=== PATIENT | male | born 1970 | race Caucasian/White ===

== ENCOUNTER 2018-11-07 09:02 | Inpatient (IN) | payer MEDICARE, OTHER ==
[~2018-11-07] VITALS: Ht 157.5 cm; Wt 88.0 kg
[~2018-11-07 09:02] MED LIST: ASA PO; ASPI81CH43 PO; ATO40T; CAR3125T PO; CARV3.1240 OR; DIVA1TAB59 OR; DIVA500T4 OR; DIVA500T59 OR; ITRA100C2; LISI-275; LORA-205; OMEPRAZOLE PO; OXYC5TAB3; PROC25RS PO; SODIPOW OR; SUCR1TAB; ZOLP10TA; ZOLP10TA OR
[2018-11-07 10:12] LABS: Urine Bacteria NONE SEEN /hpf (None Seen); Urine Blood Negative /uL (Negative); Urine Specific Gravity 1.007 (1.001-1.035); Urine WBC <1 /hpf (0 - 3)
[2018-11-07 10:31] LABS: Basophils # (auto) 0 uL; Basophils % (auto) 0.4 % (0.0-2.0); Eosinophils # (auto) 0.1 uL; Hematocrit 40.3 % (41.0-53.0); Hemoglobin 13.2 g/dL (13.5-17.5); Lymphocytes # (auto) 1.6 uL; Lymphocytes % (auto) 26.1 % (10.0-50.0); Mean Corpuscular Hemoglobin 29.3 pg (28.0-32.0); Mean Corpuscular Hgb Conc. 32.7 g/dL (32.0-36.0); Mean Corpuscular Volume 89.4 fL (80.0-100.0); Monocytes # (auto) 0.6 uL; Monocytes % (auto) 10.3 % (0.0-12.0); Neutrophils # (auto) 3.9 uL; Neutrophils % (auto) 61.2 % (37.0-80.0); Platelet Count (auto) 242 10^3/uL (140-450); Red Blood Cells 4.51 10^6/uL (4.5-5.90); Red Cell Distribution Width 16.7 % (11.8-14.3); White Blood Cell 6.3 10^3/uL (4.4-10.8)
[2018-11-07 10:55] LABS: Albumin 3.7 g/dL (3.4-5.0); Calcium 9.3 mg/dL (8.5-10.1); Potassium 3.8 mmol/L (3.5-5.1)
[2018-11-07 11:00] LABS: Bilirubin, Total 0.2 mg/dL (0.2-1.0); Total Protein 7.8 g/dL (6.4-8.2)
[2018-11-07] MEDS ORDERED: CLINDAMYCIN 600MG IV 50 ML IV ONE (14:15)
[2018-11-07] MEDS ORDERED: PROMETHAZINE HCL 25 MG/ML 1ML IV PRN (16:00)
[2018-11-07] MEDS ORDERED: DEXTROSE (50%) 50ML SYRG IV PRN (16:00)
[2018-11-07] MEDS ORDERED: NITROGLYCERIN 0.4 MG SL TAB SL PRN (16:00)
[2018-11-07] MEDS ORDERED: LACTULOSE 20Gm/30ML SOLN PO PRN (16:00)
[2018-11-07] MEDS ORDERED: PIPERACILLIN-TAZOB 2.25GM 50 ML IV ONE (16:00)
[2018-11-07] MEDS ORDERED: traMADol HCL 50 MG TAB PO PRN (16:00)
[2018-11-07] MEDS ORDERED: MORPHINE SULF INJ 2 MG/ML SYRINGE 1ML IV PRN (16:00)
[2018-11-07] MEDS ORDERED: hydrALAZINE HCL 20 MG/ML VL IV PRN (16:15)
[2018-11-07] MEDS ORDERED: PIPERACILLIN-TAZOB 3.375GM 100 ML IV ONE (16:15)
[2018-11-07] MEDS: ACCU-CHEK COMFORT CURVE STRIP VI SCH ×2 (16:33→21:05)
[2018-11-07] MEDS: InsuLIN REG 1unit/0.01ml Soln (100units/ml) SC SCH ×2 (16:44→21:04)
[2018-11-07] MEDS: BUMETANIDE 1 MG TAB PO SCH (18:23)
--- NOTE | 2018-11-07 19:45 | NUR ---
[facility] admit from ER [facility] admitted to [facility]. Patient oriented to Carolyn Torres, primary RN, unit, room, bed, and unit policies regarding patient care and visiting hours. Patient's vs taken and recorded, weighed by bedscale and encouraged to call if they need something, call light within reach. POC reviewed. All questions and concerns addressed, patient verbalized understanding. Side rails up x2, bed in lowest locked position, non skid socks on. Continue care. Note:
[2018-11-07 20:02] VITALS: BP 128/80
[2018-11-07] MEDS ORDERED: ROSU20TA14 PO (20:44)
[2018-11-07] MEDS ORDERED: INSLANTI SC (20:44)
[2018-11-07] MEDS ORDERED: THIA100T5 PO (20:44)
[2018-11-07] MEDS ORDERED: INSU100I25 SC (20:44)
[2018-11-07] MEDS ORDERED: CITA10TA59 PO (20:44)
[2018-11-07] MEDS ORDERED: FENO200C22 PO (20:44)
[2018-11-07] MEDS ORDERED: MULTTAB99 PO (20:44)
[2018-11-07] MEDS ORDERED: CHOL100046 PO (20:44)
[2018-11-07] MEDS ORDERED: LAMO200T2 PO (20:44)
[2018-11-07] MEDS ORDERED: HYDR-4296 PO (20:44)
[2018-11-07] MEDS ORDERED: BUME1TAB28 PO (20:44)
[2018-11-07] MEDS ORDERED: LEVO88TA4 PO (20:44)
[2018-11-07] MEDS ORDERED: TACR1CAP4 PO (20:44)
[2018-11-07] MEDS ORDERED: ALLO100T PO (20:44)
[2018-11-07] MEDS ORDERED: LACO150T PO (20:44)
[2018-11-07] MEDS: MORPHINE SULFATE 4 MG/ML SYR/VIAL IV PRN (21:05)
[2018-11-07 22:00] VITALS: BP 128/80
[2018-11-07] MEDS: lamoTRIgine 100 MG TAB PO SCH (22:28)
[2018-11-07] MEDS: TACROLIMUS 0.5 MG CAP PO SCH (22:28)
[2018-11-07] MEDS: hydrALAZINE HCL 25 MG TAB PO SCH (22:28)
[2018-11-07] MEDS: CLINDAMYCIN 600MG IV 50 ML IV SCH (22:28)
[2018-11-07] MEDS: LACOSAMIDE 50 MG TAB PO SCH (22:29)
[2018-11-07] MEDS: TEMAZEPAM 15 MG CAP PO PRN (22:29)
[2018-11-08] MEDS: InsuLIN REG 1unit/0.01ml Soln (100units/ml) SC SCH ×7 (00:28→23:45)
[2018-11-08] MEDS: PIPERACILLIN-TAZOB 3.375GM 100 ML IV SCH ×5 (00:28→23:44)
[2018-11-08] MEDS: ACCU-CHEK COMFORT CURVE STRIP VI SCH ×7 (00:28→23:45)
[2018-11-08] MEDS: MORPHINE SULFATE 4 MG/ML SYR/VIAL IV PRN ×5 (04:00→20:42)
[2018-11-08 05:00] VITALS: BP 138/91
[2018-11-08] MEDS: LEVOTHYROXINE SODIUM 88 MCG TAB PO SCH (06:14)
[2018-11-08] MEDS: CLINDAMYCIN 600MG IV 50 ML IV SCH ×3 (06:14→22:01)
[2018-11-08] MEDS: BUMETANIDE 1 MG TAB PO SCH ×2 (06:14→17:51)
--- NOTE | 2018-11-08 08:00 | NUR ---
Opening Shift Note Assumed care of patient, awake and alert. No S/S of distress/SOB, complaints of 6/10 bilateral lower extremity pain. Instructed on POC and to call for assist PRN, will continue to monitor for changes Q1hr and PRN.
[2018-11-08 09:00] VITALS: BP 118/77
[2018-11-08] MEDS: CITALOPRAM HYDROBR 20 MG TAB PO SCH (09:14)
[2018-11-08] MEDS: ALLOPURINOL 100 MG TAB PO SCH (09:14)
[2018-11-08] MEDS: ENOXAPARIN SOD 40 MG/0.4 ML SYRINGE SC SCH (09:14)
[2018-11-08] MEDS: PANTOPRAZOLE 40 MG TAB PO SCH (09:14)
[2018-11-08] MEDS: lamoTRIgine 100 MG TAB PO SCH ×2 (09:14→22:01)
[2018-11-08] MEDS: TACROLIMUS 0.5 MG CAP PO SCH ×2 (09:15→22:02)
[2018-11-08] MEDS: LACOSAMIDE 50 MG TAB PO SCH ×2 (09:15→22:02)
[2018-11-08] MEDS: hydrALAZINE HCL 25 MG TAB PO SCH ×2 (09:48→22:01)
[2018-11-08] MEDS ORDERED: PNEUMOCOCCAL VACC POLYS 25 MCG/0.5 ML VIAL IM ONE (10:00)
--- NOTE | 2018-11-08 11:01 | NUR ---
Spoke with patient's mother Maritza #[phone] regarding home medications particularly the rejection meds. Per Maritza patient is on Prograf and the list of all the home medications listed were the updated and most recent ones obtained from [facility]. List of the home medications placed at the patient's chart. Will continue care.
[2018-11-08 11:16] LABS: Albumin 3.4 g/dL (3.4-5.0); BUN/Creatinine Ratio 19.3; Calcium 8.7 mg/dL (8.5-10.1)
[2018-11-08 11:19] LABS: Bilirubin, Total 0.4 mg/dL (0.2-1.0); Total Protein 7.4 g/dL (6.4-8.2)
[2018-11-08 11:44] LABS: Basophils # (auto) 0 uL; Basophils % (auto) 0.4 % (0.0-2.0); Eosinophils # (auto) 0.1 uL; Eosinophils % (auto) 2.4 % (0.0-7.0); Hematocrit 37.9 % (41.0-53.0); Hemoglobin 12.5 g/dL (13.5-17.5); Lymphocytes # (auto) 1.5 uL; Lymphocytes % (auto) 34.3 % (10.0-50.0); Mean Corpuscular Hemoglobin 29.3 pg (28.0-32.0); Mean Corpuscular Hgb Conc. 33.1 g/dL (32.0-36.0); Mean Corpuscular Volume 88.5 fL (80.0-100.0); Monocytes # (auto) 0.5 uL; Monocytes % (auto) 11.2 % (0.0-12.0); Neutrophils # (auto) 2.2 uL; Neutrophils % (auto) 51.7 % (37.0-80.0); Nucleated Red Blood Cells % 0.1 %; Platelet Count (auto) 227 10^3/uL (140-450); Red Blood Cells 4.29 10^6/uL (4.5-5.90); Red Cell Distribution Width 16.4 % (11.8-14.3); White Blood Cell 4.3 10^3/uL (4.4-10.8)
[2018-11-08 13:00] VITALS: BP 139/79
[2018-11-08 13:28] LABS: Phosphorus 4.4 mg/dL (2.5-4.90)
[2018-11-08] MEDS ORDERED: THIAMINE HCL 100 MG TAB PO ONE (15:00)
--- NOTE | 2018-11-08 15:15 | NUR ---
IV removal IV on right hand infiltrated. IV DC'd with clean sterile technique, catheter fully intact. Pressure dressing applied to site. Patient tolerated well.
[2018-11-08 15:19] LABS: Protein, Urine 58.7 mg/dL (0.0-11.9)
[2018-11-08 15:20] LABS: Alcohol, Urine < 3.0 mg/dL (0-5); Amphetamine Screen, Urine NEGATIVE (NEGATIVE); Barbiturate Scree,Urine NEGATIVE (NEGATIVE); Benzodiazephine Screen, Urine NEGATIVE (NEGATIVE); Cannabinoid Screen, Urine NEGATIVE (NEGATIVE); Cocaine Screen, Urine NEGATIVE (NEGATIVE); Opiate Scree,Urine NEGATIVE (NEGATIVE); Phencyclidine Screen, Urine NEGATIVE (NEGATIVE)
--- NOTE | 2018-11-08 15:50 | NUR ---
IV insertion IV access obtained, via clean sterile technique by inserting 22 gauge catheter at right upper chest after one attempt. IV secured properly. No trauma to site. Patient tolerated well.
[2018-11-08 17:00] VITALS: BP 126/79
--- NOTE | 2018-11-08 20:30 | NUR ---
RECEIVED PT IN BED, A/O X4, IN NO ACUTE DISTRESS, C/O 10/10 BLE PAIN, WILL MEDICATE ORDERED AND WILL REASSESS. POC REVIEWED WITH PT, VERBALIZED UNDERSTANDING AND AGREED WITH PLAN. CALL LIGHT WITHIN REACH, ENCOURAGED TO CALL IF HELP IS NEEDED, SIDE RAILS UP X2, BED IN LOWEST LOCKED POSITION, NON SKID SOCKS ON. CONTINUE CARE. IV insertion IV access obtained, via clean sterile technique by inserting 22 gauge catheter at L CHEST after 2 attempt(s). IV secured properly. No trauma to site. Patient tolerated well. NOTE: IV removal IV DC'd with clean sterile technique, catheter fully intact. Pressure dressing applied to site. Patient tolerated well. NOTE:
[2018-11-08] MEDS: INSULIN LANTUS (GLARGINE) 1 /0.01ml (100units/ml) SC SCH (20:43)
[2018-11-08 22:00] VITALS: BP 142/94
[2018-11-08] MEDS: TEMAZEPAM 15 MG CAP PO PRN (22:02)
[2018-11-09] MEDS: InsuLIN REG 1unit/0.01ml Soln (100units/ml) SC SCH ×6 (04:29→23:41)
[2018-11-09] MEDS: ACCU-CHEK COMFORT CURVE STRIP VI SCH ×6 (04:29→23:33)
[2018-11-09 05:14] VITALS: BP 127/73
[2018-11-09] MEDS: CLINDAMYCIN 600MG IV 50 ML IV SCH ×3 (05:41→21:51)
[2018-11-09 05:53] LABS: Basophils # (auto) 0 uL; Basophils % (auto) 0.5 % (0.0-2.0); Eosinophils # (auto) 0.1 uL; Eosinophils % (auto) 3.2 % (0.0-7.0); Hematocrit 38.5 % (41.0-53.0); Hemoglobin 12.7 g/dL (13.5-17.5); Lymphocytes # (auto) 1.5 uL; Lymphocytes % (auto) 32.5 % (10.0-50.0); Mean Corpuscular Hemoglobin 29.5 pg (28.0-32.0); Mean Corpuscular Hgb Conc. 32.9 g/dL (32.0-36.0); Mean Corpuscular Volume 89.4 fL (80.0-100.0); Monocytes # (auto) 0.7 uL; Monocytes % (auto) 14.8 % (0.0-12.0); Neutrophils # (auto) 2.3 uL; Nucleated Red Blood Cells % 0.1 %; Platelet Count (auto) 218 10^3/uL (140-450); Red Blood Cells 4.31 10^6/uL (4.5-5.90); Red Cell Distribution Width 16.3 % (11.8-14.3); White Blood Cell 4.6 10^3/uL (4.4-10.8)
[2018-11-09 06:15] LABS: Potassium 3.8 mmol/L (3.5-5.1)
[2018-11-09] MEDS: BUMETANIDE 1 MG TAB PO SCH ×2 (06:20→17:43)
[2018-11-09] MEDS: LEVOTHYROXINE SODIUM 88 MCG TAB PO SCH (06:20)
[2018-11-09] MEDS: INSULIN LANTUS (GLARGINE) 1 /0.01ml (100units/ml) SC SCH ×2 (06:20→23:41)
[2018-11-09] MEDS: MORPHINE SULFATE 4 MG/ML SYR/VIAL IV PRN ×4 (06:21→21:52)
[2018-11-09 06:28] LABS: BUN/Creatinine Ratio 20.9; Calcium 9.2 mg/dL (8.5-10.1); Magnesium 1.9 mg/dL (1.6-2.6)
[2018-11-09] MEDS: PIPERACILLIN-TAZOB 3.375GM 100 ML IV SCH ×4 (06:32→23:32)
--- NOTE | 2018-11-09 07:30 | NUR ---
Opening Shift Note Assumed care of patient, awake and alert. No S/S of distress/SOB or pain. Instructed on POC and to call for assist PRN, will continue to monitor for changes Q1hr and PRN.
[2018-11-09] MEDS: ENOXAPARIN SOD 40 MG/0.4 ML SYRINGE SC SCH (08:30)
--- NOTE | 2018-11-09 08:30 | NUR ---
PT NOTES PT IS CONSTANTLY HUNGRY AND DEMANDING MORE FOOD, COFFEE, SODA AND ICE TEA. EXPLAINED TO PT ABOUT HIS DIET AND WHY HE'S ON IT. PT KEEPS SAYING HE NEED MORE FOOD.
[2018-11-09] MEDS: CITALOPRAM HYDROBR 20 MG TAB PO SCH (08:31)
[2018-11-09] MEDS: ALLOPURINOL 100 MG TAB PO SCH (08:31)
[2018-11-09] MEDS: PANTOPRAZOLE 40 MG TAB PO SCH (08:31)
[2018-11-09] MEDS: LACOSAMIDE 50 MG TAB PO SCH ×2 (08:31→21:51)
[2018-11-09] MEDS: hydrALAZINE HCL 25 MG TAB PO SCH ×2 (08:32→22:00)
[2018-11-09] MEDS: THIAMINE HCL 100 MG TAB PO SCH (08:32)
[2018-11-09 08:43] VITALS: BP 136/68
[2018-11-09] MEDS: TACROLIMUS 0.5 MG CAP PO SCH ×2 (08:57→21:51)
[2018-11-09] MEDS: lamoTRIgine 100 MG TAB PO SCH ×2 (08:57→21:51)
--- NOTE | 2018-11-09 09:30 | NUR ---
Rounds Patient awake and alert. No S/S of distress/SOB or pain. PT COMPLAINS OF NOT HAVING ENOUGH FOOD AND IS REQUESTING FOR DOUBLE TRAY. INFORMED PT THAT HE IS ON A DIABETIC DIET AND WILL DISCUSS HIS REQUEST WITH THE MD AND THE WOOL HANKER. Will continue to monitor changes q1hr and PRN.
[2018-11-09 12:40] VITALS: BP 118/81
--- NOTE | 2018-11-09 14:00 | NUR ---
CALLED DIETARY TO SPEAK TO THE PT ABOUT HIS DIET. DIETARY DISCUSS DIET INFOS WITH PT.
[2018-11-09 16:56] VITALS: BP 137/96
--- NOTE | 2018-11-09 17:00 | NUR ---
AT BEDSIDE. MD'S AWARE THAT PT HAD BEEN ASKING FOR MORE FOOD, AND SODA ALL DAY AND PT DOESN'T SEEM TO UNDERSTAND WHEN WE EXPLAIN TO HIM WHAT DIET HE'S ON AND WHY HE CAN'T HAVE A DOUBLE TRAY EVERY MEAL.
[2018-11-09 21:54] VITALS: BP 136/84
[2018-11-10] MEDS: MORPHINE SULFATE 4 MG/ML SYR/VIAL IV PRN ×5 (03:15→21:35)
[2018-11-10] MEDS: ACCU-CHEK COMFORT CURVE STRIP VI SCH ×5 (04:04→21:25)
[2018-11-10] MEDS: InsuLIN REG 1unit/0.01ml Soln (100units/ml) SC SCH ×5 (04:05→21:30)
[2018-11-10] MEDS: CLINDAMYCIN 600MG IV 50 ML IV SCH ×3 (05:18→21:53)
[2018-11-10 05:21] VITALS: BP 126/88
[2018-11-10] MEDS: PIPERACILLIN-TAZOB 3.375GM 100 ML IV SCH ×4 (05:48→17:50)
[2018-11-10] MEDS: BUMETANIDE 1 MG TAB PO SCH ×2 (05:48→17:19)
[2018-11-10 06:10] LABS: BUN/Creatinine Ratio 20.5; Potassium 3.7 mmol/L (3.5-5.1)
[2018-11-10 06:15] LABS: Basophils # (auto) 0 uL; Basophils % (auto) 0.4 % (0.0-2.0); Eosinophils # (auto) 0.2 uL; Eosinophils % (auto) 4.1 % (0.0-7.0); Hematocrit 37.1 % (41.0-53.0); Hemoglobin 12.5 g/dL (13.5-17.5); Lymphocytes # (auto) 1.4 uL; Lymphocytes % (auto) 30.4 % (10.0-50.0); Mean Corpuscular Hemoglobin 29.5 pg (28.0-32.0); Mean Corpuscular Hgb Conc. 33.5 g/dL (32.0-36.0); Monocytes # (auto) 0.6 uL; Monocytes % (auto) 13.8 % (0.0-12.0); Neutrophils # (auto) 2.3 uL; Neutrophils % (auto) 51.3 % (37.0-80.0); Nucleated Red Blood Cells % 0.1 %; Platelet Count (auto) 210 10^3/uL (140-450); Red Blood Cells 4.22 10^6/uL (4.5-5.90); Red Cell Distribution Width 16.5 % (11.8-14.3); White Blood Cell 4.4 10^3/uL (4.4-10.8)
[2018-11-10] MEDS: LEVOTHYROXINE SODIUM 88 MCG TAB PO SCH (06:25)
[2018-11-10] MEDS: INSULIN LANTUS (GLARGINE) 1 /0.01ml (100units/ml) SC SCH ×2 (06:26→21:54)
--- NOTE | 2018-11-10 08:30 | NUR ---
PT NOTES PT HAD BEEN CONSTANTLY ON HIS CALL LIGHT ASKING FOR AN EXTRA TRAY OF FOOD. PER PT, HE'S NOT GETTING ENOUGH FOOD TO EAT. EXPLAINED TO PATIENT THAT HE IS ON A DIABETIC DIET WHILE HE'S IN THE HOSPITAL. PT WASN'T HAPPY ABOUT THAT AND WOULD LIKE TO SPEAK TO THE MD TO CHANGE HIS DIET. INFORMED PT THAT WE WILL LET THE DOCTOR KNOW.
[2018-11-10 08:48] VITALS: BP 132/83
[2018-11-10] MEDS: TACROLIMUS 0.5 MG CAP PO SCH ×2 (09:46→21:58)
[2018-11-10] MEDS: ENOXAPARIN SOD 40 MG/0.4 ML SYRINGE SC SCH (09:46)
[2018-11-10] MEDS: lamoTRIgine 100 MG TAB PO SCH ×2 (09:46→21:53)
[2018-11-10] MEDS: ALLOPURINOL 100 MG TAB PO SCH (09:47)
[2018-11-10] MEDS: CITALOPRAM HYDROBR 20 MG TAB PO SCH (09:47)
[2018-11-10] MEDS: PANTOPRAZOLE 40 MG TAB PO SCH (09:47)
[2018-11-10] MEDS: THIAMINE HCL 100 MG TAB PO SCH (09:47)
[2018-11-10] MEDS: hydrALAZINE HCL 25 MG TAB PO SCH ×2 (09:49→21:53)
[2018-11-10] MEDS: LACOSAMIDE 50 MG TAB PO SCH ×2 (11:39→21:54)
--- NOTE | 2018-11-10 13:00 | NUR ---
IV INFILTRATED. IV SITE ON LEFT CHEST/ARMPIT PINK AND OCCLUDED. IV DC'd with clean sterile technique, catheter fully intact. Pressure dressing applied to site. Patient tolerated well. NOTE:
[2018-11-10 13:10] VITALS: BP 131/88
--- NOTE | 2018-11-10 16:00 | NUR ---
Rounds Patient aSLEEP AND SNORING. No S/S of distress/SOB or pain. Will continue to monitor changes q1hr and PRN.
[2018-11-10 16:13] VITALS: BP 121/84
[2018-11-10 16:15] VITALS: BP 121/84
--- NOTE | 2018-11-10 17:16 | NUR ---
IV insertion IV access obtained, via clean sterile technique by inserting 22 gauge catheter at MEDIAL RIGHT UPPER ARM after 1 attempt(s). IV secured properly. No trauma to site. Patient tolerated well. NOTE:
--- NOTE | 2018-11-10 18:40 | NUR ---
Rounds Patient awake and alert. No S/S of distress/SOB or pain. Will continue to monitor changes q1hr and PRN.
--- NOTE | 2018-11-10 19:25 | NUR ---
Opening Shift Note Assumed care of patient, awake and alert. No S/S of distress/SOB or pain. Instructed on POC and to call for assist PRN, will continue to monitor for changes Q1hr and PRN. Side rails up x2. Bed locked in lowest position. Call light within reach.
--- NOTE | 2018-11-10 20:30 | NUR ---
Patient still in the restroom having a bowel movement. Unable to obtain blood sugar level at this time.
[2018-11-10 21:30] VITALS: BP 128/86
[2018-11-11] MEDS: PIPERACILLIN-TAZOB 3.375GM 100 ML IV SCH ×3 (00:40→13:11)
[2018-11-11] MEDS: ACCU-CHEK COMFORT CURVE STRIP VI SCH ×4 (00:41→13:12)
[2018-11-11] MEDS: InsuLIN REG 1unit/0.01ml Soln (100units/ml) SC SCH ×4 (00:41→13:11)
[2018-11-11] MEDS: MORPHINE SULFATE 4 MG/ML SYR/VIAL IV PRN ×2 (04:15→09:35)
[2018-11-11] MEDS: CLINDAMYCIN 600MG IV 50 ML IV SCH (04:36)
[2018-11-11 05:00] VITALS: BP 130/87
[2018-11-11] MEDS: BUMETANIDE 1 MG TAB PO SCH (06:14)
[2018-11-11] MEDS: LEVOTHYROXINE SODIUM 88 MCG TAB PO SCH (06:15)
[2018-11-11] MEDS: INSULIN LANTUS (GLARGINE) 1 /0.01ml (100units/ml) SC SCH (06:30)
[2018-11-11 06:32] LABS: Basophils # (auto) 0 uL; Basophils % (auto) 0.7 % (0.0-2.0); Eosinophils # (auto) 0.2 uL; Eosinophils % (auto) 3.4 % (0.0-7.0); Hematocrit 36.9 % (41.0-53.0); Hemoglobin 12.2 g/dL (13.5-17.5); Lymphocytes # (auto) 1.7 uL; Lymphocytes % (auto) 34.4 % (10.0-50.0); Mean Corpuscular Hemoglobin 29.3 pg (28.0-32.0); Mean Corpuscular Hgb Conc. 33.1 g/dL (32.0-36.0); Mean Corpuscular Volume 88.6 fL (80.0-100.0); Monocytes # (auto) 0.7 uL; Monocytes % (auto) 13.2 % (0.0-12.0); Neutrophils # (auto) 2.4 uL; Neutrophils % (auto) 48.3 % (37.0-80.0); Platelet Count (auto) 217 10^3/uL (140-450); Red Blood Cells 4.17 10^6/uL (4.5-5.90); Red Cell Distribution Width 16.3 % (11.8-14.3); White Blood Cell 4.9 10^3/uL (4.4-10.8)
[2018-11-11 06:37] LABS: Calcium 9.7 mg/dL (8.5-10.1); Potassium 3.8 mmol/L (3.5-5.1)
[2018-11-11 06:41] LABS: BUN/Creatinine Ratio 20.8
--- NOTE | 2018-11-11 07:15 | NUR ---
Opening Shift Note Assumed care of patient, awake and alert, sitting up in bed watching television. No S/S of distress/SOB, no pain noted or reported at this time. Respirations are even and unlabored. Instructed on POC and instructed to call for assistance as needed, pt. verbalized understanding. Bed locked in lowest position, side rails up x2, call light within reach. Will continue to monitor for changes Q1hr and PRN.
--- NOTE | 2018-11-11 07:44 | NUR ---
Endorsed care to day shift RN.
[2018-11-11 08:32] VITALS: BP 138/85
[2018-11-11] MEDS: CITALOPRAM HYDROBR 20 MG TAB PO SCH (09:33)
[2018-11-11] MEDS: hydrALAZINE HCL 25 MG TAB PO SCH (09:33)
[2018-11-11] MEDS: ENOXAPARIN SOD 40 MG/0.4 ML SYRINGE SC SCH (09:34)
[2018-11-11] MEDS: lamoTRIgine 100 MG TAB PO SCH (09:34)
[2018-11-11] MEDS: PANTOPRAZOLE 40 MG TAB PO SCH (09:34)
[2018-11-11] MEDS: ALLOPURINOL 100 MG TAB PO SCH (09:34)
[2018-11-11] MEDS: LACOSAMIDE 50 MG TAB PO SCH (09:34)
[2018-11-11] MEDS: TACROLIMUS 0.5 MG CAP PO SCH (09:34)
[2018-11-11] MEDS: THIAMINE HCL 100 MG TAB PO SCH (09:36)
[2018-11-11] MEDS ORDERED: CLIN1CAP4 PO (10:43)
[2018-11-11] MEDS ORDERED: SACC250C PO (10:43)
[2018-11-11 11:47] VITALS: BP 138/85
[2018-11-11 13:00] VITALS: BP 131/91
[2018-11-11 17:00] VITALS: BP 129/84
[2018-11-11] MEDS ORDERED: PNEUMOCOCCAL VACC POLYS 25 MCG/0.5 ML VIAL IM ONE (17:45)
--- NOTE | 2018-11-11 18:25 | NUR ---
Discharge instructions given as ordered. Encourage to follow up with PMD as instructed. All questions and concerns addressed. Patient verbalized understanding. Medication reconciliation form completed and copy given to patient. PNA vaccine given. IV removed with catheter intact, pressure dressing applied. Patient taken to vehicle via wheelchair with all personal belongings, accompanied by staff and family member. No distress noted at time of departure.
== END 2018-11-11 18:25 | disposition home or self-care (01) | DRG 602 ==
LOC: ER 09:11 → OVERFLOW 09:12 → WEST WING 19:50
PROVIDERS: ADMIT Internal Medicine; ATTEND Internal Medicine
DX: L03.116 Cellulitis of left lower limb (principal); N18.6 End stage renal disease; N17.0 Acute kidney failure with tubular necrosis; I42.9 Cardiomyopathy, unspecified; I13.2 Hypertensive heart and chronic kidney disease with heart failure and with stage 5 chronic kidney disease, or end stage renal disease; Z94.0 Kidney transplant status; Z94.1 Heart transplant status; L03.115 Cellulitis of right lower limb; E11.65 Type 2 diabetes mellitus with hyperglycemia; E66.01 Morbid (severe) obesity due to excess calories; E03.9 Hypothyroidism, unspecified; I12.9 Hypertensive chronic kidney disease with stage 1 through stage 4 chronic kidney disease, or unspecified chronic kidney disease; E11.22 Type 2 diabetes mellitus with diabetic chronic kidney disease; I25.10 Atherosclerotic heart disease of native coronary artery without angina pectoris; N18.3 Chronic kidney disease, stage 3 (moderate); M10.9 Gout, unspecified; E11.21 Type 2 diabetes mellitus with diabetic nephropathy; G40.909 Epilepsy, unspecified, not intractable, without status epilepticus; I50.9 Heart failure, unspecified; Z82.3 Family history of stroke; Z82.49 Family history of ischemic heart disease and other diseases of the circulatory system; I25.2 Old myocardial infarction; Z68.35 Body mass index [BMI] 35.0-35.9, adult; Z83.3 Family history of diabetes mellitus; Z86.011 Personal history of benign neoplasm of the brain; Z86.718 Personal history of other venous thrombosis and embolism; Z88.8 Allergy status to other drugs, medicaments and biological substances; Z79.82 Long term (current) use of aspirin; Z79.899 Other long term (current) drug therapy; Z23 Encounter for immunization; Z95.0 Presence of cardiac pacemaker; Z98.61 Coronary angioplasty status
CPT/HCPCS: 36415; 76775; 80048; 80053; 80061; 80307; 81001; 82306; 82570; 82962; 83036; 83735; 83970; 84100; 84156; 84300; 84443; 84550; 85025; 85652; 87040; 87086; 93971; 94761; 96365; 96366; 96375; G0378; J1815; J2543; J3490

== ENCOUNTER → 2019-01-28 | Outpatient (CLI) | payer MEDICARE, MEDICAID ==
[~2019-01-28] MED LIST changes: +ALLO100T PO; -ASA PO; -ATO40T; +BUME1TAB28 PO; -CAR3125T PO; -CARV3.1240 OR; +CHOL100046 PO; +CITA10TA59 PO; +CLIN300C8 PO; -DIVA1TAB59 OR; -DIVA500T4 OR; -DIVA500T59 OR; +FENO200C22 PO; +HYDR-4296 PO; +INSLANTI SC; +INSU100I25 SC; -ITRA100C2; +LACO150T PO; +LAMO200T2 PO; +LEVO88TA4 PO; -LISI-275; -LORA-205; +MULTTAB99 PO; -OMEPRAZOLE PO; -OXYC5TAB3; -PROC25RS PO; +ROSU20TA14 PO; +SACC250C PO; -SODIPOW OR; -SUCR1TAB; +TACR1CAP4 PO; +THIA100T5 PO; -ZOLP10TA; -ZOLP10TA OR
[2019-01-28 08:57] LABS: Urine WBC None Seen /hpf (0 - 3)
[2019-01-28 09:09] LABS: Basophils # (auto) 0 uL; Basophils % (auto) 0.5 % (0.0-2.0); Eosinophils # (auto) 0.2 uL; Eosinophils % (auto) 4.7 % (0.0-7.0); Hematocrit 40.5 % (41.0-53.0); Hemoglobin 13.4 g/dL (13.5-17.5); Lymphocytes # (auto) 1.4 uL; Lymphocytes % (auto) 35.8 % (10.0-50.0); Mean Corpuscular Hemoglobin 28.8 pg (28.0-32.0); Mean Corpuscular Hgb Conc. 33.2 g/dL (32.0-36.0); Mean Corpuscular Volume 86.7 fL (80.0-100.0); Monocytes # (auto) 0.3 uL; Monocytes % (auto) 7.6 % (0.0-12.0); Neutrophils % (auto) 51.4 % (37.0-80.0); Nucleated Red Blood Cells % 0.1 %; Platelet Count (auto) 227 10^3/uL (140-450); Red Blood Cells 4.68 10^6/uL (4.5-5.90); Red Cell Distribution Width 16.5 % (11.8-14.3)
[2019-01-28 09:32] LABS: Urine Bacteria NONE SEEN /hpf (None Seen); Urine Blood Negative /uL (Negative); Urine Specific Gravity 1.016 (1.001-1.035)
[2019-01-28 09:49] LABS: Albumin 3.5 g/dL (3.4-5.0); BUN/Creatinine Ratio 24.6; Calcium 9.6 mg/dL (8.5-10.1); Potassium 3.6 mmol/L (3.5-5.1)
[2019-01-28 10:04] LABS: Bilirubin, Total 0.3 mg/dL (0.2-1.0); Total Protein 7.7 g/dL (6.4-8.2)
== END | disposition home or self-care (01) ==
LOC: LAB 08:40
PROVIDERS: ATTEND Internal Medicine Nephrology
DX: E78.5 Hyperlipidemia, unspecified (principal); F32.9 Major depressive disorder, single episode, unspecified; I25.10 Atherosclerotic heart disease of native coronary artery without angina pectoris; I12.9 Hypertensive chronic kidney disease with stage 1 through stage 4 chronic kidney disease, or unspecified chronic kidney disease; E11.22 Type 2 diabetes mellitus with diabetic chronic kidney disease; N18.9 Chronic kidney disease, unspecified; Z94.0 Kidney transplant status; Z94.1 Heart transplant status
CPT/HCPCS: 36415; 80053; 80197; 81001; 85025

== ENCOUNTER 2019-05-23 10:54 | Emergency (ER) | payer MEDICARE, MEDICAID ==
[~2019-05-23] VITALS: Ht 157.5 cm; Wt 83.6 kg
[2019-05-23 11:43] VITALS: BP 105/60
[2019-05-23 12:00] LABS: Basophils # (auto) 0 uL; Basophils % (auto) 0.2 % (0.0-2.0); Eosinophils # (auto) 0.1 uL; Eosinophils % (auto) 1.4 % (0.0-7.0); Hematocrit 36.8 % (41.0-53.0); Hemoglobin 12.3 g/dL (13.5-17.5); Lymphocytes # (auto) 1.7 uL; Lymphocytes % (auto) 22.4 % (10.0-50.0); Mean Corpuscular Hemoglobin 30.3 pg (28.0-32.0); Mean Corpuscular Hgb Conc. 33.5 g/dL (32.0-36.0); Mean Corpuscular Volume 90.5 fL (80.0-100.0); Monocytes # (auto) 0.7 uL; Monocytes % (auto) 9.6 % (0.0-12.0); Neutrophils # (auto) 5.2 uL; Neutrophils % (auto) 66.4 % (37.0-80.0); Platelet Count (auto) 233 10^3/uL (140-450); Red Blood Cells 4.07 10^6/uL (4.5-5.90); White Blood Cell 7.8 10^3/uL (4.4-10.8)
[2019-05-23 12:03] LABS: Chloride 105 mmol/L (98-107); Potassium 3.6 mmol/L (3.5-5.1); Sodium 136 mmol/L (136-145)
[2019-05-23 12:11] LABS: Alanine Aminotransferase 27 U/L (16-61); Albumin 3.1 g/dL (3.4-5.0); Alkaline Phosphatase 78 U/L (45-117); Anion Gap 7 (5-15); Aspartate Aminotransferase 15 U/L (15-37); BUN/Creatinine Ratio 11.6; Bilirubin, Total 0.3 mg/dL (0.2-1.0); Blood Urea Nitrogen 29 mg/dL (7-18); Calcium 9.5 mg/dL (8.5-10.1); Carbon Dioxide 24 mmol/L (21-32); GFR African American 36 mL/min; GFR Non-African American 30 mL/min; Glucose 85 mg/dL (74-106); Total Protein 7.5 g/dL (6.4-8.2)
[2019-05-23] MEDS ORDERED: traMADol HCL 50 MG TAB PO ONE (12:30)
== END 2019-05-23 12:32 | disposition home or self-care (01) ==
LOC: ER 10:54
DX: J20.9 Acute bronchitis, unspecified (principal); I25.2 Old myocardial infarction; I25.10 Atherosclerotic heart disease of native coronary artery without angina pectoris; M10.9 Gout, unspecified; I12.9 Hypertensive chronic kidney disease with stage 1 through stage 4 chronic kidney disease, or unspecified chronic kidney disease; E11.22 Type 2 diabetes mellitus with diabetic chronic kidney disease; N18.9 Chronic kidney disease, unspecified; E78.00 Pure hypercholesterolemia, unspecified; Z95.0 Presence of cardiac pacemaker; Z90.89 Acquired absence of other organs
CPT/HCPCS: 36415; 71046; 80053; 84484; 85025; 93005

== ENCOUNTER 2019-07-31 13:52 | Inpatient (IN) | payer MEDICARE, OTHER ==
[~2019-07-31] VITALS: Ht 157.5 cm; Wt 71.1 kg
[2019-07-31 14:45] LABS: Basophils # (auto) 0 10 ^3/uL (0-0.2); Basophils % (auto) 0.7 % (0.0-2.0); Eosinophils # (auto) 0.1 10 ^3/uL (0-0.8); Eosinophils % (auto) 2.8 % (0.0-7.0); Hematocrit 35.4 % (41.0-53.0); Hemoglobin 11.9 g/dL (13.5-17.5); Lymphocytes # (auto) 1.3 10 ^3/uL (0.4-5.4); Lymphocytes % (auto) 28.2 % (10.0-50.0); Mean Corpuscular Hemoglobin 30.9 pg (28.0-32.0); Mean Corpuscular Hgb Conc. 33.6 g/dL (32.0-36.0); Monocytes # (auto) 0.3 10 ^3/uL (0-1.3); Monocytes % (auto) 7.4 % (0.0-12.0); Neutrophils # (auto) 2.8 10 ^3/uL (1.6-8.6); Neutrophils % (auto) 60.9 % (37.0-80.0); Nucleated Red Blood Cells % 0.1 %; Platelet Count (auto) 172 10^3/uL (140-450); Red Blood Cells 3.85 10^6/uL (4.5-5.90); Red Cell Distribution Width 16.6 % (11.8-14.3); White Blood Cell 4.7 10^3/uL (4.4-10.8)
[2019-07-31 15:00] LABS: Albumin 3.6 g/dL (3.4-5.0); Calcium 9.9 mg/dL (8.5-10.1); Potassium 3.3 mmol/L (3.5-5.1)
[2019-07-31 15:09] LABS: Bilirubin, Total 0.3 mg/dL (0.2-1.0); Total Protein 7.5 g/dL (6.4-8.2)
[2019-07-31 15:13] LABS: BUN/Creatinine Ratio 26.2
[2019-07-31] MEDS ORDERED: InsuLIN REG 1unit/0.01ml Soln (100units/ml) IV ONE (15:45)
[2019-07-31] MEDS ORDERED: SODIUM CHLORIDE 0.9% 1,000 ML IV ONE (15:45)
[2019-07-31] MEDS ORDERED: InsuLIN R (HUMAN) 100 UNITS in SODIUM CHL 0.9% 99 ML IV SCH (16:11)
[2019-07-31] MEDS ORDERED: PROMETHAZINE HCL 25 MG/ML 1ML IV PRN (16:15)
[2019-07-31] MEDS ORDERED: DEXTROSE (50%) 50ML SYRG IV PRN ×2 (16:15→22:45)
[2019-07-31] MEDS ORDERED: MORPHINE SULF INJ 2 MG/ML SYRINGE 1ML IV PRN ×3 (16:15→16:45)
[2019-07-31] MEDS ORDERED: traMADol HCL 50 MG TAB PO PRN (16:15)
[2019-07-31] MEDS ORDERED: NITROGLYCERIN 0.4 MG SL TAB SL PRN (16:15)
[2019-07-31 16:41] LABS: Amylase 44 U/L (25-115); Lipase 310 U/L (73-393)
[2019-07-31] MEDS: MORPHINE SULF INJ 2 MG/ML SYRINGE 1ML IV PRN (17:28)
[2019-07-31] MEDS: SODIUM CHLORIDE 0.9% 1,000 ML IV SCH (17:29)
[2019-07-31 18:55] LABS: Urine Bacteria NONE SEEN /hpf (None Seen); Urine Blood Negative /uL (Negative); Urine Specific Gravity 1.007 (1.001-1.035); Urine WBC <1 /hpf (0 - 3)
[2019-07-31] MEDS: ACCU-CHEK COMFORT CURVE STRIP VI SCH ×3 (20:03→23:14)
[2019-07-31 20:51] LABS: Amphetamine Screen, Urine NEGATIVE (NEGATIVE); Barbiturate Scree,Urine NEGATIVE (NEGATIVE); Benzodiazephine Screen, Urine NEGATIVE (NEGATIVE); Cannabinoid Screen, Urine NEGATIVE (NEGATIVE); Cocaine Screen, Urine NEGATIVE (NEGATIVE); Opiate Scree,Urine NEGATIVE (NEGATIVE); Phencyclidine Screen, Urine NEGATIVE (NEGATIVE)
[2019-07-31] MEDS: METOPROLOL TARTRATE 25 MG TAB PO SCH (22:00)
[2019-07-31] MEDS: INSULIN LANTUS (GLARGINE) 1 /0.01ml (100units/ml) SC SCH (22:05)
[2019-07-31] MEDS: hydrALAZINE HCL 25 MG TAB PO SCH (22:05)
[2019-07-31] MEDS: TACROLIMUS 0.5 MG CAP PO SCH (22:05)
[2019-07-31] MEDS: FAMOTIDINE 20 MG TAB PO SCH (22:05)
[2019-07-31] MEDS: lamoTRIgine 100 MG TAB PO SCH (22:05)
[2019-07-31 22:25] LABS: BUN/Creatinine Ratio 28.4; Calcium 9.8 mg/dL (8.5-10.1)
[2019-07-31 22:30] LABS: Potassium 2.7 mmol/L (3.5-5.1)
[2019-07-31] MEDS ORDERED: POTASSIUM CHL 20 Meq TABLET PO ONE ×2 (22:45→23:10)
[2019-07-31] MEDS: ATORVASTATIN 20 MG TAB PO SCH (23:11)
[2019-08-01] VITALS: BP 153/80
[2019-08-01] MEDS ORDERED: PNEUMOCOCCAL VACC POLYS 25 MCG/0.5 ML VIAL IM ONE (00:30)
[2019-08-01] MEDS ORDERED: INFLUENZA QUAD 2019-2020 0.5ml SYRG IM ONE (00:30)
[2019-08-01] MEDS: ACCU-CHEK COMFORT CURVE STRIP VI SCH ×12 (00:31→20:32)
[2019-08-01] MEDS: MORPHINE SULF INJ 2 MG/ML SYRINGE 1ML IV PRN ×3 (00:49→18:17)
[2019-08-01] MEDS: SODIUM CHLORIDE 0.9% 1,000 ML IV SCH ×3 (03:12→23:21)
[2019-08-01] MEDS: InsuLIN REG 1unit/0.01ml Soln (100units/ml) SC SCH ×6 (04:36→20:33)
[2019-08-01 05:30] VITALS: BP 112/69
[2019-08-01] MEDS: LEVOTHYROXINE SODIUM 88 MCG TAB PO SCH (06:54)
[2019-08-01 09:13] VITALS: BP 123/80
[2019-08-01] MEDS: TACROLIMUS 0.5 MG CAP PO SCH ×2 (09:22→22:53)
[2019-08-01] MEDS: ASPirin 81 mg TAB PO SCH (09:23)
[2019-08-01] MEDS: THIAMINE HCL 100 MG TAB PO SCH (09:23)
[2019-08-01] MEDS: hydrALAZINE HCL 25 MG TAB PO SCH ×2 (09:23→22:53)
[2019-08-01] MEDS: METOPROLOL TARTRATE 25 MG TAB PO SCH ×2 (09:23→22:51)
[2019-08-01] MEDS: CITALOPRAM HYDROBR 20 MG TAB PO SCH (09:24)
[2019-08-01] MEDS: lamoTRIgine 100 MG TAB PO SCH ×2 (09:24→22:53)
[2019-08-01] MEDS: NITROGLYCERIN 0.2MG/HR TOPICAL PATCH TD SCH (09:26)
[2019-08-01] MEDS: FENOFIBRATE MICRONIZED 200 MG PO SCH (09:26)
[2019-08-01] MEDS ORDERED: ADENOSINE 71 MG in GIVE UN-DILUTED 0 ML IV STA (09:38)
[2019-08-01] MEDS: INSULIN LANTUS (GLARGINE) 1 /0.01ml (100units/ml) SC SCH ×2 (10:00→22:55)
[2019-08-01 10:51] LABS: Basophils # (auto) 0 10 ^3/uL (0-0.2); Basophils % (auto) 0.5 % (0.0-2.0); Eosinophils # (auto) 0.3 10 ^3/uL (0-0.8); Eosinophils % (auto) 4.9 % (0.0-7.0); Hematocrit 36.2 % (41.0-53.0); Hemoglobin 12.1 g/dL (13.5-17.5); Lymphocytes # (auto) 1.9 10 ^3/uL (0.4-5.4); Lymphocytes % (auto) 33.3 % (10.0-50.0); Mean Corpuscular Hemoglobin 30.2 pg (28.0-32.0); Mean Corpuscular Hgb Conc. 33.4 g/dL (32.0-36.0); Mean Corpuscular Volume 90.3 fL (80.0-100.0); Monocytes # (auto) 0.4 10 ^3/uL (0-1.3); Monocytes % (auto) 7.3 % (0.0-12.0); Nucleated Red Blood Cells % 0.1 %; Platelet Count (auto) 185 10^3/uL (140-450); Red Blood Cells 4.01 10^6/uL (4.5-5.90); Red Cell Distribution Width 16.4 % (11.8-14.3); White Blood Cell 5.6 10^3/uL (4.4-10.8)
[2019-08-01 11:08] LABS: Albumin 3.3 g/dL (3.4-5.0); Anion Gap 7 (5-15); Blood Urea Nitrogen 53 mg/dL (7-18); Carbon Dioxide 26 mmol/L (21-32); Chloride 102 mmol/L (98-107); Glucose 356 mg/dL (74-106); Potassium 3.3 mmol/L (3.5-5.1); Sodium 135 mmol/L (136-145)
[2019-08-01 11:15] LABS: Alanine Aminotransferase 41 U/L (16-61); Alkaline Phosphatase 62 U/L (45-117); Aspartate Aminotransferase 37 U/L (15-37); BUN/Creatinine Ratio 23.8; Bilirubin, Total 0.3 mg/dL (0.2-1.0); Cholesterol 228 mg/dL (< 200); GFR African American 41 mL/min; GFR Non-African American 34 mL/min; HDL Cholesterol 31 mg/dL (40-59); Total Protein 7.2 g/dL (6.4-8.2); Triglycerides 921 mg/dL (< 150)
[2019-08-01 13:00] VITALS: BP 103/69
[2019-08-01] MEDS ORDERED: LORazepam 2MG/ML-1ML VIAL IV ONE (13:45)
[2019-08-01] MEDS ORDERED: GEMFIBROZIL 600 MG TAB PO ONE (14:45)
[2019-08-01] MEDS ORDERED: MAGNESIUM OXIDE 400 MG TAB PO ONE ×2 (15:00→22:00)
[2019-08-01 17:00] VITALS: BP 112/68
[2019-08-01] MEDS ORDERED: InsuLIN REG 1unit/0.01ml Soln (100units/ml) SC ONE (18:30)
[2019-08-01 21:00] VITALS: BP 133/80
[2019-08-01] MEDS: ATORVASTATIN 20 MG TAB PO SCH (22:53)
[2019-08-01] MEDS: FAMOTIDINE 20 MG TAB PO SCH (22:53)
[2019-08-02] MEDS: MORPHINE SULF INJ 2 MG/ML SYRINGE 1ML IV PRN ×3 (01:06→21:51)
[2019-08-02] MEDS: ACCU-CHEK COMFORT CURVE STRIP VI SCH ×7 (01:06→23:31)
[2019-08-02] MEDS: InsuLIN REG 1unit/0.01ml Soln (100units/ml) SC SCH ×7 (01:08→23:32)
[2019-08-02 04:30] VITALS: BP_SYST 103; BP_SYST 132; BP_DIAS 62; BP_DIAS 65
[2019-08-02] MEDS: LEVOTHYROXINE SODIUM 88 MCG TAB PO SCH (06:32)
[2019-08-02 08:00] VITALS: BP 119/72
[2019-08-02] MEDS: SODIUM CHLORIDE 0.9% 1,000 ML IV SCH ×2 (09:15→18:30)
[2019-08-02] MEDS: FENOFIBRATE MICRONIZED 200 MG PO SCH (10:00)
[2019-08-02] MEDS: INSULIN LANTUS (GLARGINE) 1 /0.01ml (100units/ml) SC SCH ×2 (10:00→21:55)
[2019-08-02] MEDS ORDERED: MAGNESIUM OXIDE 400 MG TAB PO SCH (10:00)
[2019-08-02] MEDS: CITALOPRAM HYDROBR 20 MG TAB PO SCH (10:05)
[2019-08-02] MEDS: ASPirin 81 mg TAB PO SCH (10:05)
[2019-08-02] MEDS: THIAMINE HCL 100 MG TAB PO SCH (10:05)
[2019-08-02] MEDS: NITROGLYCERIN 0.2MG/HR TOPICAL PATCH TD SCH (10:08)
[2019-08-02] MEDS: METOPROLOL TARTRATE 25 MG TAB PO SCH ×2 (10:08→21:26)
[2019-08-02] MEDS: ALLOPURINOL 100 MG TAB PO SCH (10:09)
[2019-08-02] MEDS: hydrALAZINE HCL 25 MG TAB PO SCH ×2 (10:09→21:25)
[2019-08-02] MEDS: lamoTRIgine 100 MG TAB PO SCH ×2 (10:09→21:24)
[2019-08-02] MEDS: GEMFIBROZIL 600 MG TAB PO SCH ×2 (10:10→21:24)
[2019-08-02] MEDS: TACROLIMUS 0.5 MG CAP PO SCH ×2 (10:26→21:56)
[2019-08-02] MEDS ORDERED: DEXTROSE (50%) 50ML SYRG IV PRN (12:00)
[2019-08-02 12:47] LABS: Potassium 3.8 mmol/L (3.5-5.1)
[2019-08-02 13:00] VITALS: BP 106/75
[2019-08-02 17:00] VITALS: BP 113/60
[2019-08-02 18:26] LABS: Urine Bacteria NONE SEEN /hpf (None Seen); Urine Blood Negative /uL (Negative); Urine Specific Gravity 1.011 (1.001-1.035); Urine WBC <1 /hpf (0 - 3)
[2019-08-02 20:00] VITALS: BP 136/80
[2019-08-02] MEDS: ATORVASTATIN 20 MG TAB PO SCH (21:24)
[2019-08-02] MEDS: FAMOTIDINE 20 MG TAB PO SCH (21:55)
[2019-08-03] MEDS: InsuLIN REG 1unit/0.01ml Soln (100units/ml) SC SCH ×6 (04:00→23:23)
[2019-08-03] MEDS: ACCU-CHEK COMFORT CURVE STRIP VI SCH ×6 (04:46→23:23)
[2019-08-03] MEDS: SODIUM CHLORIDE 0.9% 1,000 ML IV SCH (04:53)
[2019-08-03 05:00] VITALS: BP 117/62
[2019-08-03 06:09] LABS: Basophils # (auto) 0 10 ^3/uL (0-0.2); Basophils % (auto) 0.8 % (0.0-2.0); Eosinophils # (auto) 0.3 10 ^3/uL (0-0.8); Eosinophils % (auto) 5.1 % (0.0-7.0); Hematocrit 34.7 % (41.0-53.0); Hemoglobin 11.7 g/dL (13.5-17.5); Lymphocytes # (auto) 2.3 10 ^3/uL (0.4-5.4); Lymphocytes % (auto) 45.1 % (10.0-50.0); Mean Corpuscular Hemoglobin 30.4 pg (28.0-32.0); Mean Corpuscular Hgb Conc. 33.7 g/dL (32.0-36.0); Mean Corpuscular Volume 90.3 fL (80.0-100.0); Monocytes # (auto) 0.4 10 ^3/uL (0-1.3); Monocytes % (auto) 8.6 % (0.0-12.0); Neutrophils % (auto) 40.4 % (37.0-80.0); Platelet Count (auto) 180 10^3/uL (140-450); Red Blood Cells 3.84 10^6/uL (4.5-5.90); Red Cell Distribution Width 16.7 % (11.8-14.3)
[2019-08-03] MEDS: LEVOTHYROXINE SODIUM 88 MCG TAB PO SCH (06:09)
[2019-08-03 06:20] LABS: Potassium 3.7 mmol/L (3.5-5.1)
[2019-08-03 06:26] LABS: BUN/Creatinine Ratio 21.7; Calcium 9.3 mg/dL (8.5-10.1); Phosphorus 2.8 mg/dL (2.5-4.90)
[2019-08-03 08:21] VITALS: BP 133/76
[2019-08-03] MEDS: FENOFIBRATE MICRONIZED 200 MG PO SCH (10:00)
[2019-08-03] MEDS ORDERED: MAGNESIUM OXIDE 400 MG TAB PO SCH (10:00)
[2019-08-03] MEDS: INSULIN LANTUS (GLARGINE) 1 /0.01ml (100units/ml) SC SCH ×2 (10:00→22:20)
[2019-08-03] MEDS: ASPirin 81 mg TAB PO SCH (11:10)
[2019-08-03] MEDS: lamoTRIgine 100 MG TAB PO SCH ×2 (11:10→22:21)
[2019-08-03] MEDS: CITALOPRAM HYDROBR 20 MG TAB PO SCH (11:11)
[2019-08-03] MEDS: ALLOPURINOL 100 MG TAB PO SCH (11:11)
[2019-08-03] MEDS: GEMFIBROZIL 600 MG TAB PO SCH ×2 (11:11→22:20)
[2019-08-03] MEDS: THIAMINE HCL 100 MG TAB PO SCH (11:12)
[2019-08-03] MEDS: hydrALAZINE HCL 25 MG TAB PO SCH ×2 (11:12→22:21)
[2019-08-03] MEDS: NITROGLYCERIN 0.2MG/HR TOPICAL PATCH TD SCH (11:13)
[2019-08-03] MEDS: METOPROLOL TARTRATE 25 MG TAB PO SCH ×2 (11:13→22:20)
[2019-08-03] MEDS: TACROLIMUS 0.5 MG CAP PO SCH ×2 (11:43→22:20)
[2019-08-03 13:00] VITALS: BP 126/85
[2019-08-03] MEDS: MORPHINE SULF INJ 2 MG/ML SYRINGE 1ML IV PRN ×2 (16:36→20:41)
[2019-08-03 16:41] VITALS: BP 112/66
[2019-08-03] MEDS ORDERED: OMNIPAQUE ORAL SOLN 500ml 12mg/ml PO ONE ×2 (17:32→20:18)
[2019-08-03 22:09] VITALS: BP 120/77
[2019-08-03] MEDS: ATORVASTATIN 20 MG TAB PO SCH (22:20)
[2019-08-03] MEDS: FAMOTIDINE 20 MG TAB PO SCH (22:20)
[2019-08-04] MEDS: MORPHINE SULF INJ 2 MG/ML SYRINGE 1ML IV PRN ×3 (01:10→12:07)
[2019-08-04 02:16] VITALS: BP 99/52
[2019-08-04] MEDS: ACCU-CHEK COMFORT CURVE STRIP VI SCH ×3 (04:17→12:06)
[2019-08-04] MEDS: InsuLIN REG 1unit/0.01ml Soln (100units/ml) SC SCH ×3 (04:19→12:06)
[2019-08-04 05:00] VITALS: BP 101/64
[2019-08-04 06:09] LABS: Basophils # (auto) 0 10 ^3/uL (0-0.2); Basophils % (auto) 0.7 % (0.0-2.0); Eosinophils # (auto) 0.2 10 ^3/uL (0-0.8); Eosinophils % (auto) 4.6 % (0.0-7.0); Hemoglobin 10.6 g/dL (13.5-17.5); Lymphocytes # (auto) 1.7 10 ^3/uL (0.4-5.4); Lymphocytes % (auto) 33.6 % (10.0-50.0); Mean Corpuscular Hemoglobin 30.9 pg (28.0-32.0); Mean Corpuscular Volume 90.7 fL (80.0-100.0); Monocytes # (auto) 0.3 10 ^3/uL (0-1.3); Monocytes % (auto) 5.9 % (0.0-12.0); Neutrophils # (auto) 2.7 10 ^3/uL (1.6-8.6); Neutrophils % (auto) 55.2 % (37.0-80.0); Nucleated Red Blood Cells % 0.1 %; Platelet Count (auto) 169 10^3/uL (140-450); Red Blood Cells 3.42 10^6/uL (4.5-5.90); Red Cell Distribution Width 16.9 % (11.8-14.3)
[2019-08-04 06:13] LABS: Potassium 4.3 mmol/L (3.5-5.1)
[2019-08-04 06:18] LABS: Calcium 8.8 mg/dL (8.5-10.1)
[2019-08-04] MEDS: LEVOTHYROXINE SODIUM 88 MCG TAB PO SCH (06:36)
[2019-08-04 08:00] VITALS: BP 100/57
[2019-08-04 09:00] VITALS: BP 96/50
[2019-08-04 09:30] LABS: Hepatitis B Surface Antibody Negative
[2019-08-04] MEDS ORDERED: GEMFIBROZIL 600 MG TAB PO SCH (10:00)
[2019-08-04] MEDS: hydrALAZINE HCL 25 MG TAB PO SCH (10:00)
[2019-08-04] MEDS: FENOFIBRATE MICRONIZED 200 MG PO SCH (10:00)
[2019-08-04] MEDS: NITROGLYCERIN 0.2MG/HR TOPICAL PATCH TD SCH (10:00)
[2019-08-04] MEDS: METOPROLOL TARTRATE 25 MG TAB PO SCH (10:00)
[2019-08-04] MEDS: TACROLIMUS 0.5 MG CAP PO SCH (10:00)
[2019-08-04 10:02] LABS: Hepatitis A Total Antibody Positive
[2019-08-04] MEDS ORDERED: hydrALAZINE HCL 25 MG TAB PO SCH (10:45)
[2019-08-04] MEDS: ASPirin 81 mg TAB PO SCH (10:50)
[2019-08-04] MEDS: THIAMINE HCL 100 MG TAB PO SCH (10:51)
[2019-08-04] MEDS: CITALOPRAM HYDROBR 20 MG TAB PO SCH (10:51)
[2019-08-04] MEDS: lamoTRIgine 100 MG TAB PO SCH (10:52)
[2019-08-04] MEDS: ALLOPURINOL 100 MG TAB PO SCH (10:53)
[2019-08-04] MEDS: INSULIN LANTUS (GLARGINE) 1 /0.01ml (100units/ml) SC SCH (11:11)
[2019-08-04 11:21] LABS: Hepatitis B Core Total AB Negative; Hepatitis B Surface Antigen Negative (Negative)
[2019-08-04 11:22] LABS: Hepatitis C Antibody Negative (Negative)
[2019-08-04] MEDS ORDERED: CILOSTAZOL 100 MG TAB PO ONE (11:30)
[2019-08-04 12:37] VITALS: BP 136/81
[2019-08-04] MEDS ORDERED: ATOR20TA50 PO (13:23)
[2019-08-04] MEDS ORDERED: ICOSAPENT ETHYL PO SCH (22:00)
[2019-08-04] MEDS ORDERED: CILOSTAZOL 100 MG TAB PO SCH (22:00)
[2019-08-05] MEDS ORDERED: FENOFIBRATE PO SCH (10:00)
== END 2019-08-04 16:25 | disposition home or self-care (01) | DRG 698 ==
LOC: ER 13:52 → TELE 13:53 → TELE-WESTW 23:37
PROVIDERS: ADMIT Internal Medicine; ATTEND Internal Medicine Nephrology
DX: T86.19 Other complication of kidney transplant (principal); E11.00 Type 2 diabetes mellitus with hyperosmolarity without nonketotic hyperglycemic-hyperosmolar coma (NKHHC); I50.43 Acute on chronic combined systolic (congestive) and diastolic (congestive) heart failure; N17.0 Acute kidney failure with tubular necrosis; N18.6 End stage renal disease; E87.1 Hypo-osmolality and hyponatremia; I25.759 Atherosclerosis of native coronary artery of transplanted heart with unspecified angina pectoris; I13.2 Hypertensive heart and chronic kidney disease with heart failure and with stage 5 chronic kidney disease, or end stage renal disease; E11.65 Type 2 diabetes mellitus with hyperglycemia; Z94.0 Kidney transplant status; E87.6 Hypokalemia; Z98.61 Coronary angioplasty status; E03.9 Hypothyroidism, unspecified; E66.01 Morbid (severe) obesity due to excess calories; E11.51 Type 2 diabetes mellitus with diabetic peripheral angiopathy without gangrene; G40.909 Epilepsy, unspecified, not intractable, without status epilepticus; E11.22 Type 2 diabetes mellitus with diabetic chronic kidney disease; I87.8 Other specified disorders of veins; Y83.0 Surgical operation with transplant of whole organ as the cause of abnormal reaction of the patient, or of later complication, without mention of misadventure at the time of the procedure; E78.5 Hyperlipidemia, unspecified; Z79.4 Long term (current) use of insulin; I25.2 Old myocardial infarction; Z83.3 Family history of diabetes mellitus; Z99.2 Dependence on renal dialysis; Z91.19 Patient's noncompliance with other medical treatment and regimen; Z88.1 Allergy status to other antibiotic agents; Z88.8 Allergy status to other drugs, medicaments and biological substances; R16.0 Hepatomegaly, not elsewhere classified; R55 Syncope and collapse; Z68.36 Body mass index [BMI] 36.0-36.9, adult; F40.240 Claustrophobia; E78.1 Pure hyperglyceridemia
CPT/HCPCS: 36415; 71046; 71250; 74176; 80048; 80053; 80061; 80197; 80307; 81001; 82105; 82150; 82306; 82378; 82550; 82570; 82962; 83036; 83690; 83735; 83880; 83970; 84100; 84156; 84443; 84484; 85025; 85652; 86141; 86301; 86704; 86706; 86708; 86803; 87340; 93005; 93306; 93925; 96361; 96365; 96375; G0378; J0153; J1815; J7507

== ENCOUNTER 2019-08-24 11:38 | Inpatient (IN) | payer MEDICARE, OTHER ==
[~2019-08-24] VITALS: Ht 170.2 cm; Wt 91.0 kg
[~2019-08-24 11:38] MED LIST changes: -ALLO100T PO; +ATOR20TA50 PO; -CHOL100046 PO; -CLIN300C8 PO; -ROSU20TA14 PO; -SACC250C PO; -THIA100T5 PO
[2019-08-24] MEDS ORDERED: ONDANSETRON HCL 4 MG/2 ML VIAL IM ONE (12:45)
[2019-08-24] MEDS ORDERED: MORPHINE SULF INJ 2 MG/ML SYRINGE 1ML IM ONE (12:45)
[2019-08-24] MEDS ORDERED: MORPHINE SULF INJ 2 MG/ML SYRINGE 1ML IV ONE ×2 (13:00)
[2019-08-24] MEDS ORDERED: ONDANSETRON HCL 4 MG/2 ML VIAL IV ONE (13:00)
[2019-08-24 13:16] LABS: Basophils # (auto) 0.1 10 ^3/uL (0-0.2); Basophils % (auto) 0.7 % (0.0-2.0); Eosinophils # (auto) 0.3 10 ^3/uL (0-0.8); Eosinophils % (auto) 4.7 % (0.0-7.0); Hemoglobin 11.4 g/dL (13.5-17.5); Lymphocytes # (auto) 2.6 10 ^3/uL (0.4-5.4); Lymphocytes % (auto) 36.7 % (10.0-50.0); Mean Corpuscular Hemoglobin 31.6 pg (28.0-32.0); Mean Corpuscular Hgb Conc. 35.5 g/dL (32.0-36.0); Monocytes # (auto) 0.6 10 ^3/uL (0-1.3); Monocytes % (auto) 8.5 % (0.0-12.0); Neutrophils # (auto) 3.5 10 ^3/uL (1.6-8.6); Neutrophils % (auto) 49.4 % (37.0-80.0); Platelet Count (auto) 242 10^3/uL (140-450); Red Blood Cells 3.59 10^6/uL (4.5-5.90); Red Cell Distribution Width 15.6 % (11.8-14.3); White Blood Cell 7.1 10^3/uL (4.4-10.8)
[2019-08-24 13:43] LABS: Albumin 3.8 g/dL (3.4-5.0); Anion Gap 11 (5-15); Blood Urea Nitrogen 62 mg/dL (7-18); Calcium 10.2 mg/dL (8.5-10.1); Carbon Dioxide 26 mmol/L (21-32); Chloride 98 mmol/L (98-107); Glucose 240 mg/dL (74-106); Sodium 135 mmol/L (136-145)
[2019-08-24 13:47] LABS: INR 0.97 (0.9-1.15); Partial Thromboplastin Time 28.8 sec (23.64-32.05)
[2019-08-24 13:50] LABS: Alanine Aminotransferase 34 U/L (16-61); Alkaline Phosphatase 71 U/L (45-117); Aspartate Aminotransferase 24 U/L (15-37); BUN/Creatinine Ratio 25.4; Bilirubin, Total 0.4 mg/dL (0.2-1.0); GFR African American 37 mL/min; GFR Non-African American 31 mL/min; Total Protein 7.9 g/dL (6.4-8.2)
[2019-08-24] MEDS ORDERED: SODIUM CHLORIDE 0.9% 500 ML IV ONE (14:00)
[2019-08-24 14:06] LABS: Potassium 2.6 mmol/L (3.5-5.1)
[2019-08-24] MEDS ORDERED: POTASSIUM CHL 20 Meq TABLET PO ONE (14:15)
[2019-08-24] MEDS ORDERED: HYDROcodone-ACET 5/325MG TAB PO PRN (15:15)
[2019-08-24] MEDS ORDERED: ONDANSETRON HCL 4 MG/2 ML VIAL IV PRN (15:15)
[2019-08-24] MEDS ORDERED: ACETAMINOPHEN 500 MG TAB PO PRN (15:15)
[2019-08-24] MEDS ORDERED: DOCUSATE SOD 100 MG CAP PO PRN (15:15)
[2019-08-24] MEDS ORDERED: DEXTROSE (50%) 50ML SYRG IV PRN ×3 (15:15→20:45)
[2019-08-24] MEDS ORDERED: SODIUM CHLORIDE 0.9% 1,000 ML IV ONE (15:30)
[2019-08-24] MEDS ORDERED: ACCU-CHEK COMFORT CURVE STRIP VI SCH ×3 (17:00→20:00)
[2019-08-24] MEDS ORDERED: InsuLIN REG 1unit/0.01ml Soln (100units/ml) SC SCH ×2 (17:00→20:00)
[2019-08-24] MEDS: MORPHINE SULF INJ 2 MG/ML SYRINGE 1ML IV PRN ×2 (17:36→22:13)
[2019-08-24] MEDS ORDERED: InsuLIN REG 1unit/0.01ml Soln (100units/ml) IV ONE ×2 (18:15→20:45)
[2019-08-24] MEDS ORDERED: SPEC1TAB PO (19:03)
[2019-08-24] MEDS ORDERED: OMEG100062 PO (19:03)
[2019-08-24] MEDS ORDERED: ALLO100T PO (19:03)
[2019-08-24] MEDS ORDERED: ROSU20TA14 PO (19:03)
[2019-08-24] MEDS ORDERED: CITA10TA59 PO (19:03)
[2019-08-24] MEDS ORDERED: THIA100T5 PO (19:03)
[2019-08-24] MEDS ORDERED: CHOL20007 OR (19:03)
[2019-08-24] MEDS ORDERED: BUME2TAB5 PO (19:03)
[2019-08-24 20:02] LABS: Anion Gap 9 (5-15); Blood Urea Nitrogen 66 mg/dL (7-18); Calcium 8.8 mg/dL (8.5-10.1); Carbon Dioxide 24 mmol/L (21-32); Chloride 98 mmol/L (98-107); Potassium 3.5 mmol/L (3.5-5.1); Sodium 131 mmol/L (136-145)
[2019-08-24 20:11] LABS: BUN/Creatinine Ratio 24.3; GFR African American 33 mL/min; GFR Non-African American 27 mL/min
[2019-08-24 20:15] LABS: Glucose 701 mg/dL (74-106)
[2019-08-24] MEDS: NITROGLYCERIN 0.4 MG SL TAB SL PRN (21:12)
[2019-08-24] MEDS ORDERED: InsuLIN REG 1unit/0.01ml Soln (100units/ml) SC ONE (21:15)
[2019-08-24 22:00] VITALS: BP 123/73
[2019-08-24] MEDS: hydrALAZINE HCL 25 MG TAB PO SCH (22:00)
[2019-08-24] MEDS ORDERED: ATORVASTATIN 20 MG TAB PO SCH (22:00)
[2019-08-24] MEDS: TACROLIMUS 0.5 MG CAP PO SCH (23:51)
[2019-08-25] MEDS: INSULIN LANTUS (GLARGINE) 1 /0.01ml (100units/ml) SC SCH ×3 (00:41→21:16)
[2019-08-25] MEDS: InsuLIN REG 1unit/0.01ml Soln (100units/ml) SC SCH ×6 (00:42→20:50)
[2019-08-25] MEDS: ACCU-CHEK COMFORT CURVE STRIP VI SCH ×6 (04:00→20:49)
[2019-08-25 05:00] VITALS: BP 128/80
[2019-08-25] MEDS: MORPHINE SULF INJ 2 MG/ML SYRINGE 1ML IV PRN ×4 (05:34→21:27)
[2019-08-25] MEDS: LEVOTHYROXINE SODIUM 88 MCG TAB PO SCH (06:29)
[2019-08-25] MEDS: FENOFIBRATE MICRONIZED 200 MG PO SCH (08:00)
[2019-08-25 08:20] VITALS: BP 102/62
[2019-08-25 08:59] LABS: Basophils # (auto) 0 10 ^3/uL (0-0.2); Basophils % (auto) 0.6 % (0.0-2.0); Eosinophils # (auto) 0.3 10 ^3/uL (0-0.8); Eosinophils % (auto) 6.4 % (0.0-7.0); Hematocrit 31.3 % (41.0-53.0); Hemoglobin 10.7 g/dL (13.5-17.5); Lymphocytes # (auto) 1.6 10 ^3/uL (0.4-5.4); Lymphocytes % (auto) 38.9 % (10.0-50.0); Mean Corpuscular Hemoglobin 30.7 pg (28.0-32.0); Mean Corpuscular Hgb Conc. 34.3 g/dL (32.0-36.0); Mean Corpuscular Volume 89.4 fL (80.0-100.0); Monocytes # (auto) 0.3 10 ^3/uL (0-1.3); Monocytes % (auto) 8.5 % (0.0-12.0); Neutrophils # (auto) 1.9 10 ^3/uL (1.6-8.6); Neutrophils % (auto) 45.6 % (37.0-80.0); Nucleated Red Blood Cells % 0.1 %; Platelet Count (auto) 173 10^3/uL (140-450); Red Cell Distribution Width 15.8 % (11.8-14.3); White Blood Cell 4.1 10^3/uL (4.4-10.8)
[2019-08-25 09:00] VITALS: BP 101/60
[2019-08-25 09:20] LABS: BUN/Creatinine Ratio 25.5; Calcium 9.2 mg/dL (8.5-10.1); Magnesium 2.4 mg/dL (1.6-2.6); Potassium 3.3 mmol/L (3.5-5.1)
[2019-08-25] MEDS: CITALOPRAM HYDROBR 20 MG TAB PO SCH (09:25)
[2019-08-25] MEDS: hydrALAZINE HCL 25 MG TAB PO SCH ×2 (09:27→22:00)
[2019-08-25] MEDS: ASPirin 81 mg TAB PO SCH (09:28)
[2019-08-25] MEDS: TACROLIMUS 0.5 MG CAP PO SCH ×2 (09:34→22:31)
[2019-08-25 13:00] VITALS: BP 125/80
[2019-08-25] MEDS: LACOSAMIDE 50 MG TAB PO SCH ×2 (16:35→22:32)
[2019-08-25 17:00] VITALS: BP 131/86
[2019-08-25] MEDS: ICOSAPENT ETHYL PO SCH (18:00)
[2019-08-25 21:15] LABS: Urine WBC None Seen /hpf (0 - 3)
[2019-08-25 21:44] LABS: Urine Bacteria NONE SEEN /hpf (None Seen); Urine Blood Negative /uL (Negative); Urine Specific Gravity 1.015 (1.001-1.035)
[2019-08-25 22:00] VITALS: BP 115/79
[2019-08-25] MEDS: CILOSTAZOL 100 MG TAB PO SCH (22:31)
[2019-08-26] MEDS: ACCU-CHEK COMFORT CURVE STRIP VI SCH ×7 (00:33→23:53)
[2019-08-26] MEDS: InsuLIN REG 1unit/0.01ml Soln (100units/ml) SC SCH ×7 (00:36→23:53)
[2019-08-26] MEDS: LEVOTHYROXINE SODIUM 88 MCG TAB PO SCH (06:40)
[2019-08-26] MEDS ORDERED: LORazepam 2MG/ML-1ML VIAL IV PRN (07:00)
[2019-08-26] MEDS: MORPHINE SULF INJ 2 MG/ML SYRINGE 1ML IV PRN ×4 (07:00→20:45)
[2019-08-26 07:55] LABS: Basophils # (auto) 0 10 ^3/uL (0-0.2); Basophils % (auto) 0.5 % (0.0-2.0); Eosinophils # (auto) 0.3 10 ^3/uL (0-0.8); Eosinophils % (auto) 5.7 % (0.0-7.0); Hematocrit 34.4 % (41.0-53.0); Hemoglobin 11.7 g/dL (13.5-17.5); Lymphocytes # (auto) 1.5 10 ^3/uL (0.4-5.4); Lymphocytes % (auto) 29.5 % (10.0-50.0); Mean Corpuscular Hemoglobin 30.8 pg (28.0-32.0); Mean Corpuscular Volume 90.5 fL (80.0-100.0); Monocytes # (auto) 0.4 10 ^3/uL (0-1.3); Neutrophils # (auto) 2.9 10 ^3/uL (1.6-8.6); Neutrophils % (auto) 56.3 % (37.0-80.0); Nucleated Red Blood Cells % 0.1 %; Platelet Count (auto) 180 10^3/uL (140-450); Red Cell Distribution Width 15.9 % (11.8-14.3); White Blood Cell 5.2 10^3/uL (4.4-10.8)
[2019-08-26] MEDS: ICOSAPENT ETHYL PO SCH ×2 (08:00→17:47)
[2019-08-26] MEDS: FENOFIBRATE MICRONIZED 200 MG PO SCH (08:00)
[2019-08-26 08:05] LABS: Calcium 9.2 mg/dL (8.5-10.1); Potassium 3.3 mmol/L (3.5-5.1)
[2019-08-26 08:08] LABS: BUN/Creatinine Ratio 24.2
[2019-08-26 08:42] VITALS: BP 121/70
[2019-08-26] MEDS ORDERED: POTASSIUM CHL 20 Meq TABLET PO ONE (08:45)
[2019-08-26] MEDS: LACOSAMIDE 50 MG TAB PO SCH ×2 (09:16→21:23)
[2019-08-26] MEDS: CITALOPRAM HYDROBR 20 MG TAB PO SCH (09:17)
[2019-08-26] MEDS: ASPirin 81 mg TAB PO SCH (09:17)
[2019-08-26] MEDS: CILOSTAZOL 100 MG TAB PO SCH ×2 (09:17→21:22)
[2019-08-26] MEDS: hydrALAZINE HCL 25 MG TAB PO SCH ×2 (09:19→21:23)
[2019-08-26] MEDS: INSULIN LANTUS (GLARGINE) 1 /0.01ml (100units/ml) SC SCH ×2 (09:25→21:38)
[2019-08-26] MEDS: TACROLIMUS 0.5 MG CAP PO SCH ×2 (12:33→21:22)
[2019-08-26 12:42] VITALS: BP 100/77
[2019-08-26 16:58] VITALS: BP 141/86
[2019-08-26] MEDS ORDERED: traMADol HCL 50 MG TAB PO PRN (19:45)
[2019-08-26 23:29] VITALS: BP 120/69
[2019-08-27] MEDS ORDERED: SODIUM CHLORIDE 0.9% 1,000 ML IV SCH (00:01)
[2019-08-27] MEDS: InsuLIN REG 1unit/0.01ml Soln (100units/ml) SC SCH ×5 (04:00→20:00)
[2019-08-27] MEDS: ACCU-CHEK COMFORT CURVE STRIP VI SCH ×5 (04:00→20:59)
[2019-08-27] MEDS: MORPHINE SULF INJ 2 MG/ML SYRINGE 1ML IV PRN ×5 (04:25→21:10)
[2019-08-27] MEDS: NITROGLYCERIN 0.4 MG SL TAB SL PRN ×3 (04:40→04:53)
[2019-08-27 05:55] VITALS: BP 123/76
[2019-08-27 06:02] LABS: Basophils # (auto) 0 10 ^3/uL (0-0.2); Basophils % (auto) 0.5 % (0.0-2.0); Eosinophils # (auto) 0.2 10 ^3/uL (0-0.8); Eosinophils % (auto) 4.6 % (0.0-7.0); Hematocrit 30.7 % (41.0-53.0); Hemoglobin 10.4 g/dL (13.5-17.5); Lymphocytes # (auto) 1.5 10 ^3/uL (0.4-5.4); Lymphocytes % (auto) 31.1 % (10.0-50.0); Mean Corpuscular Hemoglobin 30.6 pg (28.0-32.0); Monocytes # (auto) 0.4 10 ^3/uL (0-1.3); Monocytes % (auto) 7.9 % (0.0-12.0); Neutrophils # (auto) 2.7 10 ^3/uL (1.6-8.6); Neutrophils % (auto) 55.9 % (37.0-80.0); Platelet Count (auto) 178 10^3/uL (140-450); Red Blood Cells 3.41 10^6/uL (4.5-5.90); Red Cell Distribution Width 15.9 % (11.8-14.3); White Blood Cell 4.9 10^3/uL (4.4-10.8)
[2019-08-27 06:09] LABS: INR 0.98 (0.9-1.15); Partial Thromboplastin Time 29.3 sec (23.64-32.05)
[2019-08-27 06:19] LABS: Calcium 9.1 mg/dL (8.5-10.1); Chloride 106 mmol/L (98-107); Potassium 3.6 mmol/L (3.5-5.1); Sodium 138 mmol/L (136-145)
[2019-08-27 06:28] LABS: Anion Gap 9 (5-15); BUN/Creatinine Ratio 18.4; Blood Urea Nitrogen 32 mg/dL (7-18); Carbon Dioxide 23 mmol/L (21-32); GFR African American 55 mL/min; GFR Non-African American 45 mL/min; Glucose 242 mg/dL (74-106)
[2019-08-27] MEDS: LEVOTHYROXINE SODIUM 88 MCG TAB PO SCH (06:44)
[2019-08-27] MEDS: ICOSAPENT ETHYL PO SCH ×2 (08:00→18:00)
[2019-08-27] MEDS: FENOFIBRATE MICRONIZED 200 MG PO SCH (08:00)
[2019-08-27 09:22] VITALS: BP 122/78
[2019-08-27] MEDS ORDERED: IODIXANOL 320MG/ML 100ML BTL IV ONE (10:26)
[2019-08-27] MEDS ORDERED: LIDOCAINE 2%HCL (LOCAL ANESTH.) INJ 20ML MDV ONE (10:26)
[2019-08-27] MEDS ORDERED: IOHEXOL 350 MG/ML 100ML IJ ONE (10:26)
[2019-08-27] MEDS: ASPirin 81 mg TAB PO SCH (11:07)
[2019-08-27] MEDS: TACROLIMUS 0.5 MG CAP PO SCH (11:08)
[2019-08-27] MEDS: LACOSAMIDE 50 MG TAB PO SCH (11:08)
[2019-08-27] MEDS: CITALOPRAM HYDROBR 20 MG TAB PO SCH (11:09)
[2019-08-27] MEDS: CILOSTAZOL 100 MG TAB PO SCH (11:09)
[2019-08-27] MEDS: hydrALAZINE HCL 25 MG TAB PO SCH (11:10)
[2019-08-27] MEDS: INSULIN LANTUS (GLARGINE) 1 /0.01ml (100units/ml) SC SCH ×2 (11:11→22:00)
[2019-08-27 13:00] VITALS: BP 126/78
[2019-08-27 17:00] VITALS: BP 130/84
[2019-08-27 21:56] VITALS: BP 148/91
[2019-08-28] MEDS: hydrALAZINE HCL 25 MG TAB PO SCH ×2 (00:03→10:48)
[2019-08-28] MEDS: TACROLIMUS 0.5 MG CAP PO SCH ×2 (00:06→12:55)
[2019-08-28] MEDS: CILOSTAZOL 100 MG TAB PO SCH ×2 (00:06→10:49)
[2019-08-28] MEDS: LACOSAMIDE 50 MG TAB PO SCH ×2 (00:06→10:48)
[2019-08-28] MEDS: MORPHINE SULF INJ 2 MG/ML SYRINGE 1ML IV PRN ×3 (01:11→10:47)
[2019-08-28] MEDS: InsuLIN REG 1unit/0.01ml Soln (100units/ml) SC SCH ×4 (04:00→12:54)
[2019-08-28] MEDS: ACCU-CHEK COMFORT CURVE STRIP VI SCH ×4 (04:22→12:00)
[2019-08-28 05:00] VITALS: BP 104/60
[2019-08-28 06:19] LABS: Basophils # (auto) 0 10 ^3/uL (0-0.2); Basophils % (auto) 0.5 % (0.0-2.0); Eosinophils # (auto) 0.2 10 ^3/uL (0-0.8); Eosinophils % (auto) 5.2 % (0.0-7.0); Hemoglobin 10.8 g/dL (13.5-17.5); Lymphocytes # (auto) 1.5 10 ^3/uL (0.4-5.4); Mean Corpuscular Hemoglobin 30.5 pg (28.0-32.0); Mean Corpuscular Hgb Conc. 33.7 g/dL (32.0-36.0); Mean Corpuscular Volume 90.6 fL (80.0-100.0); Monocytes # (auto) 0.4 10 ^3/uL (0-1.3); Monocytes % (auto) 9.1 % (0.0-12.0); Neutrophils % (auto) 48.2 % (37.0-80.0); Platelet Count (auto) 183 10^3/uL (140-450); Red Blood Cells 3.53 10^6/uL (4.5-5.90); Red Cell Distribution Width 15.9 % (11.8-14.3); White Blood Cell 4.2 10^3/uL (4.4-10.8)
[2019-08-28] MEDS: LEVOTHYROXINE SODIUM 88 MCG TAB PO SCH (06:35)
[2019-08-28 06:46] LABS: Calcium 9.1 mg/dL (8.5-10.1); Potassium 3.8 mmol/L (3.5-5.1)
[2019-08-28 06:49] LABS: BUN/Creatinine Ratio 17.5
[2019-08-28] MEDS: FENOFIBRATE MICRONIZED 200 MG PO SCH (08:00)
[2019-08-28] MEDS: ICOSAPENT ETHYL PO SCH (08:00)
[2019-08-28 09:00] VITALS: BP 127/84
[2019-08-28] MEDS: INSULIN LANTUS (GLARGINE) 1 /0.01ml (100units/ml) SC SCH (10:41)
[2019-08-28] MEDS: CITALOPRAM HYDROBR 20 MG TAB PO SCH (10:48)
[2019-08-28] MEDS: ASPirin 81 mg TAB PO SCH (10:49)
[2019-08-28 11:50] VITALS: BP 127/84
[2019-08-28 13:00] VITALS: BP 111/76
== END 2019-08-28 14:45 | disposition home or self-care (01) | DRG 302 ==
LOC: EDBD 11:38 → ER 11:38 → TELE 11:39 → TELE-CENTR 17:49 → TELE-EAST 18:05 → TELE-CENTR 08-25 22:36
PROVIDERS: ADMIT Nurse Practitioner Acute Care; ATTEND Internal Medicine
DX: I25.750 Atherosclerosis of native coronary artery of transplanted heart with unstable angina (principal); N17.0 Acute kidney failure with tubular necrosis; I24.9 Acute ischemic heart disease, unspecified; T86.19 Other complication of kidney transplant; I13.0 Hypertensive heart and chronic kidney disease with heart failure and stage 1 through stage 4 chronic kidney disease, or unspecified chronic kidney disease; E11.22 Type 2 diabetes mellitus with diabetic chronic kidney disease; Z79.4 Long term (current) use of insulin; E78.5 Hyperlipidemia, unspecified; Y83.0 Surgical operation with transplant of whole organ as the cause of abnormal reaction of the patient, or of later complication, without mention of misadventure at the time of the procedure; G40.909 Epilepsy, unspecified, not intractable, without status epilepticus; E11.51 Type 2 diabetes mellitus with diabetic peripheral angiopathy without gangrene; D64.9 Anemia, unspecified; E87.6 Hypokalemia; E11.65 Type 2 diabetes mellitus with hyperglycemia; E66.9 Obesity, unspecified; E78.1 Pure hyperglyceridemia; F40.240 Claustrophobia; M10.9 Gout, unspecified; E03.9 Hypothyroidism, unspecified; I73.9 Peripheral vascular disease, unspecified; N18.3 Chronic kidney disease, stage 3 (moderate); Z90.89 Acquired absence of other organs; Z95.0 Presence of cardiac pacemaker; Z88.8 Allergy status to other drugs, medicaments and biological substances; I25.2 Old myocardial infarction; Z80.9 Family history of malignant neoplasm, unspecified; Z68.31 Body mass index [BMI] 31.0-31.9, adult; I50.9 Heart failure, unspecified
CPT/HCPCS: 36415; 71045; 80048; 80053; 80197; 81001; 82962; 83036; 83735; 83880; 84443; 84484; 85025; 85610; 85730; 86850; 86900; 86901; 87081; 93005; 96361; 96374; 96375; 96376; G0378; J1815; J2405; Q9967

== ENCOUNTER → 2020-03-02 | Outpatient (CLI) | payer MEDICARE, OTHER, MEDICAID ==
[~2020-03-02] MED LIST changes: +ALLO100T PO; -ATOR20TA50 PO; -BUME1TAB28 PO; +BUME2TAB5 PO; +CHOL20007 OR; +OMEG100062 PO; +ROSU20TA14 PO; +SPEC1TAB PO; +THIA100T5 PO
== END | disposition home or self-care (01) ==
LOC: XY 16:00
PROVIDERS: ATTEND Podiatrist
DX: R60.0 Localized edema (principal)
CPT/HCPCS: 93925; 93970